=== PATIENT | male | born 1970 | race Caucasian/White ===

== ENCOUNTER → 2016-12-18 | Outpatient (CLI) | payer BC, SELFPAY ==
--- NOTE | 2016-12-18 13:04 | MRI ---
EXAM DESCRIPTION: Brain MRI. CLINICAL HISTORY: Malignant melanoma, screening of brain for metastatic disease COMPARISON: None. TECHNIQUE: Multiplanar, multisequence MR images were acquired with and without IV contrast. FINDINGS: Chiari malformation noted with roughly 8 mm of tonsillar ectopia. This results in crowding of the basilar cisterns. The cerebellum is unremarkable otherwise. No white matter disease noted on today's study. No evidence of vasogenic or cytotoxic edema. Lyons matter is unremarkable. No restricted diffusion on today's study. Flow voids are maintained within the intracranial vessels. The orbits and globes are unremarkable. Dural venous sinuses are widely patent on today's study. No abnormal enhancement on today's study IMPRESSION: No abnormal enhancement on today's exam to suggest mass or metastatic disease. No white matter disease. Chiari malformation is noted with crowding of the basilar cisterns. Electronically signed by: Judson Bobo MD 12/18/2016 13:03
--- NOTE | 2016-12-19 10:10 | CT ---
EXAM DESCRIPTION: CT ABDOMEN PELVIS WITHOUT THEN WITH IV CONTRAST CLINICAL HISTORY: 46 y/o M, MALIG MELANOMA OF LEFT UPPER LIMB COMPARISON: None TECHNIQUE: Prior to and after the administration of IV contrast thin slice imaging of the abdomen and pelvis was performed. FINDINGS: Small amount of gadolinium contrast is seen within the collecting system of bilateral kidneys from previous MRI of the brain. No renal stones noted on today's study. Left renal cyst is noted. Bilateral kidneys enhance symmetrically. The spleen, liver, gallbladder, bilateral adrenal glands and pancreas are unremarkable. No lymphadenopathy noted on today's exam within the mesentery or retroperitoneum. Fat containing bilateral inguinal hernias. Prostate is not enlarged. Urinary bladder is grossly unremarkable. Degenerative change noted at L5-S1 with bilateral neural foraminal narrowing. IMPRESSION: No evidence of metastatic disease to the abdomen or pelvis on today's exam. The only finding is considerable degenerative change at L5-S1 with bilateral neural foraminal narrowing. Electronically signed by: Judson Bobo MD 12/18/2016 13:10
== END | disposition home or self-care (01) ==
LOC: CT 10:28
PROVIDERS: ATTEND Surgery Surgical Oncology
DX: C43.62 Malignant melanoma of left upper limb, including shoulder (principal)